=== PATIENT | female | born 1985 | race Caucasian/White ===

== ENCOUNTER 2017-11-04 12:56 | Emergency (ER) | payer MEDICAID, OTHER ==
[~2017-11-04] VITALS: Ht 154.9 cm; Wt 64.0 kg
[~2017-11-04 12:56] MED LIST: ONDA4TAB6 PO
[2017-11-04 13:16] VITALS: BP 123/73
== END 2017-11-04 14:00 | disposition home or self-care (01) ==
LOC: ER 12:56
DX: H69.81 Other specified disorders of Eustachian tube, right ear (principal); Z60.2 Problems related to living alone; Z79.899 Other long term (current) drug therapy
CPT/HCPCS: 99281

== ENCOUNTER → 2018-07-14 | Emergency (ER) | payer OTHER ==
[~2018-07-14] VITALS: Ht 154.9 cm; Wt 64.0 kg
[2018-07-14 11:33] LABS: BASOPHILS % (AUTO) 0.4 % (0-1); EOSINOPHILS # (AUTO) 0.2 X10'3 (0-0.9); EOSINOPHILS % (AUTO) 3.2 % (0-6); HEMATOCRIT 36.9 % (35.0-45.0); HEMOGLOBIN 12.7 g/dl (12.0-16.0); LYMPHOCYTES # (AUTO) 1.7 X10'3 (1.1-4.8); LYMPHOCYTES % (AUTO) 22.2 % (21-51); MEAN CORPUSCULAR HGB CONC 34.5 % (33.0-36.5); MEAN CORPUSCULAR VOLUME 87.1 FL (78-98); MEAN PLATELET VOLUME 9.9 FL (7.4-10.4); MONOCYTES # (AUTO) 0.2 X10'3 (0-0.9); MONOCYTES % (AUTO) 2.1 % (2-12); NEUTROPHILS # (AUTO) 5.5 X10'3 (1.8-7.7); NEUTROPHILS % (AUTO) 72.1 % (42-75); PLATELET COUNT 289 X10'3 (140-440); RED BLOOD COUNT 4.24 X10'6 (4.20-5.60); RED CELL DISTRIBUTION WIDTH 11.7 % (11.5-14.5); WHITE BLOOD COUNT 7.6 X10'3 (4.5-11.0)
[2018-07-14 11:47] LABS: PARTIAL THROMBOPLASTIN TIME 27 SECONDS (22-32); PROTHROMBIN TIME 10.2 SECONDS (9.0-12.0)
[2018-07-14 12:01] LABS: ALANINE AMINOTRANSFERASE 31 U/L (12-78); ALBUMIN 3.6 G/DL (3.4-5.0); ALBUMIN/GLOBULIN RATIO 0.9 (1.1-1.5); ALKALINE PHOSPHATASE 62 IU/L (46-116); ANION GAP 10 (8-16); BILIRUBIN,TOTAL 0.5 MG/DL (0.1-1.0); BLOOD UREA NITROGEN 6 MG/DL (7-18); BUN/CREATININE RATIO 9.1 (6.6-38.0); CALCIUM 8.6 MG/DL (8.5-10.1); CHLORIDE 104 MMOL/L (99-107); CREATININE 0.66 MG/DL (0.40-0.90); GLUCOSE 125 MG/DL (70-104); SODIUM 139 MMOL/L (135-145); TOTAL CARBON DIOXIDE 24.8 MMOL/L (24-32); TOTAL PROTEIN 7.4 G/DL (6.4-8.2); eGFR > 90 ML/MIN
[2018-07-14 12:03] LABS: ASPARTATE AMINO TRANSFERASE 31 U/L (10-37); POTASSIUM 4.1 MMOL/L (3.5-5.1)
[2018-07-14 12:08] VITALS: BP 129/77
== END | disposition home or self-care (01) ==
LOC: ER 11:03
DX: R07.9 Chest pain, unspecified (principal); Z79.899 Other long term (current) drug therapy; Z87.891 Personal history of nicotine dependence
CPT/HCPCS: 36415; 71045; 80053; 84484; 85025; 85610; 85730; 93005; 99284

== ENCOUNTER 2019-08-18 11:08 | Emergency (ER) | payer MEDICAID, OTHER ==
[~2019-08-18] VITALS: Ht 157.5 cm; Wt 66.0 kg
[2019-08-18 12:33] LABS: CLARITY,URINE SLIGHTLY CLOUDY (Clear); COLOR,URINE YELLOW (Yellow); GLUCOSE, URINE NEGATIVE (Neg); KETONES,URINE >=80 mg/dl (Neg); LEUKOCYTE ESTERASE ,URINE NEGATIVE (Neg); NITRITES, URINE NEGATIVE (Neg); OCCULT BLOOD,URINE NEGATIVE (Neg); PROTEIN,URINE NEGATIVE (Neg); UA COLLECTION TYPE CLN CATCH MIDSTREAM
[2019-08-18 12:37] LABS: BACTERIA,URINE 4+ /HPF (Neg); MUCUS STRANDS FEW /LPF (Neg); RBC,URINE 0-2 /HPF (0-2); SQUAMOUS EPITHELIAL CELL,UR MANY /LPF (FEW); WBC,URINE 0-4 /HPF (0-4)
[2019-08-18] MEDS ORDERED: ondansetron 4mg rapidly disintigrating tab PO ONE (13:10)
[2019-08-18 13:13] VITALS: BP 117/72
[2019-08-18 13:14] LABS: ALANINE AMINOTRANSFERASE 34 U/L (12-78); ALBUMIN 3.6 G/DL (3.4-5.0); ALBUMIN/GLOBULIN RATIO 1.1 (1.1-1.5); ALKALINE PHOSPHATASE 67 IU/L (46-116); ANION GAP 8 (8-16); ASPARTATE AMINO TRANSFERASE 24 U/L (10-37); BILIRUBIN,TOTAL 1.1 MG/DL (0.1-1.0); BLOOD UREA NITROGEN 9 MG/DL (7-18); BUN/CREATININE RATIO 11.1 (6.6-38.0); CALCIUM 8.4 MG/DL (8.5-10.1); CHLORIDE 106 MMOL/L (99-107); CREATININE 0.81 MG/DL (0.40-0.90); GLUCOSE 85 MG/DL (70-104); POTASSIUM 3.3 MMOL/L (3.5-5.1); SODIUM 141 MMOL/L (135-145); TOTAL CARBON DIOXIDE 26.8 MMOL/L (24-32); TOTAL PROTEIN 6.9 G/DL (6.4-8.2); eGFR 81 ML/MIN
[2019-08-18 13:16] LABS: BASOPHILS % (AUTO) 0.5 % (0-1); EOSINOPHILS # (AUTO) 0.1 X10'3 (0-0.9); EOSINOPHILS % (AUTO) 1.3 % (0-6); HEMATOCRIT 35.1 % (35.0-45.0); HEMOGLOBIN 12.1 g/dl (12.0-16.0); LYMPHOCYTES # (AUTO) 0.9 X10'3 (1.1-4.8); LYMPHOCYTES % (AUTO) 22.8 % (21-51); MEAN CORPUSCULAR HEMOGLOBIN 29.5 PG (27.0-31.0); MEAN CORPUSCULAR HGB CONC 34.6 g/dL (33.0-36.5); MEAN CORPUSCULAR VOLUME 85.4 FL (78-98); MEAN PLATELET VOLUME 9.9 FL (7.4-10.4); MONOCYTES # (AUTO) 0.3 X10'3 (0-0.9); MONOCYTES % (AUTO) 8.2 % (2-12); NEUTROPHILS # (AUTO) 2.6 X10'3 (1.8-7.7); NEUTROPHILS % (AUTO) 67.2 % (42-75); PLATELET COUNT 224 X10'3 (140-440); RED BLOOD COUNT 4.11 X10'6 (4.20-5.60); RED CELL DISTRIBUTION WIDTH 12.7 % (11.5-14.5); WHITE BLOOD COUNT 3.9 X10'3 (4.5-11.0)
[2019-08-18] MEDS ORDERED: ONDA4TAB6 PO (13:33)
[2019-08-18] MEDS ORDERED: LOPE2TAB25 PO (13:33)
== END 2019-08-18 13:48 | disposition home or self-care (01) ==
LOC: ER 11:09
DX: R19.7 Diarrhea, unspecified (principal)
CPT/HCPCS: 36415; 80053; 81001; 85025; 99283

== ENCOUNTER 2021-02-18 10:27 | Emergency (ER) | payer MEDICAID ==
[~2021-02-18] VITALS: Ht 157.5 cm; Wt 69.7 kg
[~2021-02-18 10:27] MED LIST changes: +LOPE2TAB25 PO
[2021-02-18 10:30] VITALS: BP 153/63
[2021-02-18] MEDS ORDERED: HYDR28CR14 TOP (14:08)
== END 2021-02-18 14:33 | disposition home or self-care (01) ==
LOC: ER 10:28
DX: L29.9 Pruritus, unspecified (principal); Z72.89 Other problems related to lifestyle; Z79.899 Other long term (current) drug therapy
CPT/HCPCS: 99282; 99283

== ENCOUNTER 2021-02-24 14:32 | Emergency (ER) | payer MEDICAID ==
[~2021-02-24] VITALS: Ht 157.5 cm; Wt 69.8 kg
[~2021-02-24 14:32] MED LIST changes: +HYDR28CR14 TOP
[2021-02-24 15:42] VITALS: BP 128/86
[2021-02-24] MEDS ORDERED: ALBU8HFA PO (17:37)
== END 2021-02-24 17:51 | disposition home or self-care (01) ==
LOC: ER 14:34
DX: R05 Cough (principal); R06.2 Wheezing; Z20.822 Contact with and (suspected) exposure to COVID-19; Z79.899 Other long term (current) drug therapy
CPT/HCPCS: 87635; 99283; C9803

== ENCOUNTER 2022-08-19 18:03 | Emergency (ER) | payer MEDICAID ==
[~2022-08-19] VITALS: Ht 157.5 cm; Wt 70.0 kg
[2022-08-19 20:30] VITALS: BP 137/80
== END 2022-08-19 20:41 | disposition home or self-care (01) ==
LOC: ER 18:03
DX: S93.401A Sprain of unspecified ligament of right ankle, initial encounter (principal); M25.571 Pain in right ankle and joints of right foot; F17.210 Nicotine dependence, cigarettes, uncomplicated; Z72.89 Other problems related to lifestyle; Z79.899 Other long term (current) drug therapy; W19.XXXA Unspecified fall, initial encounter; Y93.89 Activity, other specified; Y92.89 Other specified places as the place of occurrence of the external cause; Y99.8 Other external cause status
CPT/HCPCS: 73600; 99283

== ENCOUNTER 2023-06-16 07:21 | Emergency (ER) | payer MEDICAID ==
[~2023-06-16] VITALS: Ht 157.5 cm; Wt 64.5 kg
[2023-06-16 07:23] VITALS: TEMP 98.6
[2023-06-16 07:56] VITALS: BP 137/96
--- NOTE | 2023-06-16 08:38 | NUR ---
non critical positive covid test. call from Joyce in lab.
[2023-06-16] MEDS ORDERED: NIRM1TAB PO (08:44)
[2023-06-16 09:09] VITALS: PULSE 68; RESP 14; O2SAT 99
== END 2023-06-16 09:11 | disposition home or self-care (01) ==
LOC: ER 07:21
DX: U07.1 COVID-19 (principal); F17.210 Nicotine dependence, cigarettes, uncomplicated; Z72.89 Other problems related to lifestyle; Z79.899 Other long term (current) drug therapy
CPT/HCPCS: 36415; 87811; 99283

== ENCOUNTER 2023-07-22 14:53 | Emergency (ER) | payer MEDICAID ==
[~2023-07-22] VITALS: Ht 157.5 cm; Wt 68.2 kg
[~2023-07-22 14:53] MED LIST changes: +NIRM1TAB PO
[2023-07-22 14:56] VITALS: BP 130/85; PULSE 81; RESP 16; TEMP 98.5; O2SAT 100
[2023-07-22] MEDS ORDERED: SULF1TAB49 PO (15:16)
[2023-07-22] MEDS ORDERED: CEPH-585 PO (15:16)
[2023-07-22] MEDS ORDERED: CHLO237L21 TP (15:16)
== END 2023-07-22 15:26 | disposition home or self-care (01) ==
LOC: ER 14:54
DX: L02.512 Cutaneous abscess of left hand (principal); Z72.89 Other problems related to lifestyle; Z60.2 Problems related to living alone; Z79.899 Other long term (current) drug therapy
CPT/HCPCS: 10060; 87070; 87077; 87186; 99283

== ENCOUNTER 2023-07-25 09:33 | Emergency (ER) | payer MEDICAID ==
[~2023-07-25] VITALS: Ht 157.5 cm; Wt 64.7 kg
[~2023-07-25 09:33] MED LIST changes: +CEPH-585 PO; +CHLO237L21 TP; +SULF1TAB49 PO
[2023-07-25 10:04] VITALS: BP 126/77; PULSE 63; RESP 18; TEMP 98; O2SAT 98
== END 2023-07-25 10:20 | disposition home or self-care (01) ==
LOC: ER 09:34
DX: L02.511 Cutaneous abscess of right hand (principal); Z53.21 Procedure and treatment not carried out due to patient leaving prior to being seen by health care provider
CPT/HCPCS: 99281

== ENCOUNTER 2025-01-25 09:13 | Emergency (ER) | payer MEDICAID ==
[~2025-01-25] VITALS: Ht 157.5 cm; Wt 58.4 kg
[~2025-01-25 09:13] MED LIST changes: -CEPH-585 PO; -SULF1TAB49 PO
[2025-01-25 09:22] VITALS: BP 128/102; PULSE 78; RESP 15; TEMP 97.7; O2SAT 99
--- NOTE | 2025-01-25 09:42 | Physician Documentation ---
History of Present Illness ~ Chief Complaint: Knee Pain Stated Complaint: R KNEE PAIN Time Seen by MD: 09:36 OK to notify your PCP?: Yes [facility] Source: patient Mode of Arrival: POV Exam Limitations: no limitations HPI 39-year-old female with chief complaint right knee pain times 10 days after she had a ground level fall and landed on her right knee. She was out of town but upon returning to town she decided to come to the ER to be evaluated. No pre arrival treatment. She states she is able to weight bear on her knee but if she touches her patella it that it is painful. No overlying redness. She denies any cuts to her knee or abrasions. Tetanus witin 5 years: Yes Medication Reconciliation Allergies: Coded Allergies: No Known Allergies (Unverified , 07/25/23) Scheduled Chlorhexidine Gluconate (Antiseptic Skin Cleanser), 1 APPLIC TP BID Hydrocortisone (hydrocortisone 1% cream), 1 APPLIC TOP Q12H Loperamide Hcl (Loperamide), 1 TAB PO Q12H Nirmatrelvir/Ritonavir (Paxlovid Co-Pack (Eua)), 3 EACH PO BID Ondansetron Hcl (Zofran), 1-2 TABLET PO Q8H Ondansetron Hcl (Zofran), 1 TAB PO Q12H PRN Past Medical History Past Medical History: No Pertinent History Past Surgical History: noncontributory Alcohol Use: Occasionally Drug Use: none Lives with: Family, Alone Lives In: Home Occupation: employed Review of Systems All Other Systems at this time: Reviewed and Negative Physical Exam Vital Signs: Temperature: 97.7, Source: Temporal, Heart Rate: 78, Respiratory Rate: 15, BP: 128/102, Pulse Oximetry: 99, Weight: 58.400 Physical Exam General Appearance: Alert, WD/WN. NAD. HEENT: NCAT, PERRL, EOMI. Neck: Supple, trachea midline. Cardiovascular: RRR. No m/r/g. Lungs: CTAB. Breathing unlabored Extremities: Right knee effusion, no overlying erythema or warmth, positive ballottement test. Active range motion of knee is full. No significant laxity appreciated. Left knee normal inspection nontender active range motion full. Skin: Warm/dry, normal color Neurological: Alert and oriented x4, normal gait. Psychiatric: Affect congruent with mood. Progress Progress Note CLINICAL INDICATION: mechanical trauma TECHNIQUE: 4 radiographic views of the right knee were obtained. Comparison: None FINDINGS/IMPRESSION: There is no evidence of acute fracture or dislocation. The visualized joint space is well maintained. The alignment is anatomical. There is no radiopaque foreign body. Results/Orders Results/Orders Orders - LEILA SCHRADER Knee, Complete (01/25/25 09:39) Completed Orders - LEILA SCHRADER Knee, Complete (01/25/25 09:39) Vital Signs 01/25/25 09:22 Temp 97.7 Pulse 78 Resp 15 B/P (MAP) 128/102 Pulse Ox 99 Medical Decision Making Knee Diff Dx:Considerations: Include: Abrasion, Arthritis, Contusion, DJD, Fracture-femur, Fracture-fibula, Fracture-patella, Fracture-tibia, Gout, Hematoma, Laceration, Meniscus injury, Neurovascular injury, Open fracture, Rheumatoid arthritis, Septic, Sprain, Sprain-MCL, Sprain-LCL, Sprain-ACL, Sprain-PCL Additional Comment Due to the direct trauma to the patella I ordered an x-ray to make sure that there was no evidence of any fracture which there was not. Discussed compression to help the fluid reabsorb, rest and follow up with PCP for possible MRI Departure Time of Disposition: 09: Disposition: 01 HOME / SELF CARE / HOMELESS Impression: Primary Impression: Effusion of knee Qualified Codes: M25.461 - Effusion, right knee Additional Impression: Knee pain Qualified Codes: M25.561 - Pain in right knee Condition: Stable Discharge Instructions: Acute Knee Pain, Adult Additional Instructions: Due to the direct trauma to the patella I ordered an x-ray to make sure that there was no evidence of any fracture which there was not. Discussed compression to help the fluid reabsorb, rest and follow up with PCP for possible MRI xray results below: CLINICAL INDICATION: mechanical trauma TECHNIQUE: 4 radiographic views of the right knee were obtained. Comparison: None FINDINGS/IMPRESSION: There is no evidence of acute fracture or dislocation. The visualized joint space is well maintained. The alignment is anatomical. There is no radiopaque foreign body. Referrals: NO PRIMARY CARE PROVIDER (PCP) Education Educated: Patient Educated regarding: diagnosis, treatment, need for follow up Signature Scribe Signature: x Attestation: x LORIO,LEILA T PA Jan 25, 2025 09:42
--- NOTE | 2025-01-25 10:04 | RADIOLOGY REPORT ---
CLINICAL INDICATION: mechanical trauma TECHNIQUE: 4 radiographic views of the right knee were obtained. Comparison: None FINDINGS/IMPRESSION: There is no evidence of acute fracture or dislocation. The visualized joint space is well maintained. The alignment is anatomical. There is no radiopaque foreign body.
== END 2025-01-25 10:26 | disposition home or self-care (01) ==
LOC: ER 09:13
DX: M25.461 Effusion, right knee (principal); M25.561 Pain in right knee; Z79.899 Other long term (current) drug therapy; Z72.89 Other problems related to lifestyle; Z60.2 Problems related to living alone
CPT/HCPCS: 73564; 99284; A6449